=== PATIENT | female | born 1985 ===

== ENCOUNTER 2018-03-08 09:35 | Emergency (ER) | payer MEDICAID ==
[2018-03-08 09:52] VITALS: TEMP 99; O2SAT 100
[2018-03-08] MEDS ORDERED: Tdap Vaccine 0.5 ml Vial (10-64 yrs) IM ONE ×2 (10:34→11:45)
[2018-03-08] MEDS ORDERED: Povidone Iodine Topical 10% Sol ONE (11:44)
[2018-03-08] MEDS ORDERED: Lidocaine 1% 5ml Abboject ONE (11:45)
[2018-03-08] MEDS ORDERED: Lidocaine 1% Inj (20ml) IJ ONE (11:56)
--- NOTE | 2018-03-08 12:21 | RAD ---
Date of service: 03/08/2018 PROCEDURE: Right Foot Radiographs. HISTORY: Laceration COMPARISON: None. FINDINGS: BONES: Bone alignment and mineralization are normal. There is no acute displaced fracture or bone destruction. JOINTS: Normal. SOFT TISSUES: Normal. OTHER FINDINGS: None. IMPRESSION: No acute fracture or dislocation.
--- NOTE | 2018-03-08 12:45 | ED PDOC ---
Lower Extremity Pain/Injury Time Seen by Provider: 03/08/18 10:25 Chief Complaint (Nursing): Lower Extremity Problem/Injury Chief Complaint (Provider): Lower Extremity Problem/Injury History Per: Patient History/Exam Limitations: no limitations Current Symptoms Are (Timing): Still Present Additional Complaint(s): Karen Smims is a 32 year old female with no past medical history, who prese nts to the emergency department after sustaining a right foot injury, onset prior to arrival. Patient states she was wearing sandals when she stepped on glass while walking. She further reports that the glass did not go through her shoe. Her tetanus is unknown. PMD: Moses Morales Past Medical History Reviewed: Historical Data, Nursing Documentation, Vital Signs Vital Signs: Last Vital Signs Temp 99.0 F 03/08/18 09:51 Pulse 108 H 03/08/18 09:51 Resp 19 03/08/18 09:51 BP 130/79 03/08/18 09:51 Pulse Ox 100 03/08/18 09:51 - Medical History PMH: No Chronic Diseases - Surgical History Surgical History: Appendectomy - Family History Family History: States: Unknown Family Hx - Home Medications Home Medications: Ambulatory Orders Medication Instructions Recorded Cephalexin [cephalexin] 500 mg PO QID #27 cap 03/08/18 Naproxen [Naprosyn] 500 mg PO BID PRN #15 tablet 03/08/18 - Allergies Allergies/Adverse Reactions: Allergies Allergy/AdvReac Type Severity Reaction Status Date / Time No Known Allergies Allergy Verified 03/08/18 10:13 Review of Systems ROS Statement: Except As Marked, All Systems Reviewed And Found Negative Musculoskeletal: Positive for: Foot Pain (right foot laceration ) Physical Exam - Reviewed Nursing Documentation Reviewed: Yes Vital Signs Reviewed: Yes - Physical Exam Appears: Positive for: Non-toxic, No Acute Distress Head Exam: Positive for: ATRAUMATIC, NORMOCEPHALIC Skin: Positive for: Normal Color, Warm, Dry Eye Exam: Positive for: Normal appearance, EOMI, PERRL ENT: Positive for: Normal ENT Inspection Neck: Positive for: Normal, Painless ROM, Supple Cardiovascular/Chest: Positive for: Regular Rate, Rhythm. Negative for: Murmur Respiratory: Positive for: Normal Breath Sounds. Negative for: Respiratory Distress Gastrointestinal/Abdominal: Positive for: Normal Exam, Soft. Negative for: Tenderness Back: Positive for: Normal Inspection. Negative for: L CVA Tenderness, R CVA Tenderness, Vertebral Tenderness Extremity: Positive for: Normal ROM, Other (3 cm laceration on right medial mid foot; 5/5 muscle strength; no loss of sensation; no obvious foreign body) Neurologic/Psych: Positive for: Alert, Oriented (x3). Negative for: Motor /Sensory Deficits - ECG O2 Sat by Pulse Oximetry: 100 (RA) Pulse Ox Interpretation: Normal - Progress ED Course And Treament: Provider placed sutures to close patient's laceration. - Physician Consult Information Time Consulting Physican Contacted: 10:30 Physician Contacted: Podiatry Medical Decision Making Medical Decision Making: Time: 10:34 Initial Impression: Foot laceration Initial Plan: --ED urine --Right foot x-ray --Adacel (10-64 yrs) 0.5 ml IM --Keflex 500 mg PO --Lidocaine 1% (20ml) 1 ml IJ Time: 12:18 Right foot x-ray findings: Accession No. : [id number] Patient Name / ID : SOFIA CAR / [id number] Exam Date : 03/08/2018 10:44:27 ( Approved ) Study Comment : Sex / Age : F / 32Y Creator : No Velez MD Dictator : No Velez MD Logistics Solution Manager : Switch House Operator : No Velez MD Approver2 : Report Date : 03/08/2018 12:18:19 My Comment : Date of service: 03/08/2018 PROCEDURE: Right Foot Radiographs. HISTORY: Laceration COMPARISON: None. FINDINGS: BONES: Bone alignment and mineralization are normal. There is no acute displaced fracture or bone destruction. JOINTS: Normal. SOFT TISSUES: Normal. OTHER FINDINGS: None. IMPRESSION: No acute fracture or dislocation. Discharge instruction: Podiatry recommends Keflex for 7 days. Provider instructed patient to follow up with podiatry in x1 week. Scribe Attestation: Documented by Malik Sol, acting as a scribe for Madisyn Hardy MD. Provider Scribe Attestation: All medical record entries made by the Scribe were at my direction and personally dictated by me. I have reviewed the chart and agree that the record accurately reflects my personal performance of the history, physical exam, medical decision making, and the department course for this patient. I have also personally directed, reviewed, and agree with the discharge instructions and disposition. Disposition - Clinical Impression Clinical Impression: Foot laceration - Disposition Referrals: Podiatry Clinic [Outside] Disposition: Routine/Home Disposition Time: 12:44 Condition: STABLE Additional Instructions: FOLLOW-UP WITH PODIATRY CLINIC IN ONE WEEK. Prescriptions: Cephalexin [cephalexin] 500 mg PO QID #27 cap Naproxen [Naprosyn] 500 mg PO BID PRN #15 tablet PRN Reason: Pain, Moderate (4-7) Instructions: Laceration Repair, Laceration Repair With Stitches (DC) Forms: [employer] ([place])
--- NOTE | 2018-03-08 12:52 | CP.PCM.PN ---
Subjective - Date & Time of Evaluation Date of Evaluation: 03/08/18 Time of Evaluation: 12:52 Objective - Vital Signs/Intake and Output Vital Signs (last 24 hours): Temp Pulse Resp BP Pulse Ox 99.0 F 108 H 19 130/79 100 03/08/18 09:51 03/08/18 09:51 03/08/18 09:51 03/08/18 09:51 03/08/18 12:45
[2018-03-08 13:04] VITALS: BP 126/78; PULSE 90; RESP 18
--- NOTE | 2018-03-08 13:04 | CP.PCM.CON ---
History of Present Illness - History of Present Illness History of Present Illness: Podiatry consult note for attending Dr. Quinn. 32 Y/O F patient with no PMH seen and evaluated in the ED for laceration in her right foot. patient accompanied by her mother in the bedside. Patient states that at 7.30 am she stepped over a piece of glass. Patient states that she got wounded in the bottom of her right foot and felt pain immediately in the bottom of her right foot. She describes the pain as sharp pain, 10/10 decreased to 8/10 by when she is off weight bearing. Patient states that she had some bleeding from her right foot wound. Patient states that she dropped her kids to the school and comes immediately to the ED. Patient denies any tingling, numbness or burning sensation in her foot. Patient denies any other pedal complaint at this time. he denies any recent F/N/V/C or SOB. patient states that she didn't receive tetanus vaccine in the last 10 years. PMH: None PSH: Appendectomy. Allergies: NKDA Social Hx: Denies smoking, EtOH use or illicit drug use. Review of Systems - Review of Systems Review of Systems: As per HPI Past Patient History - Past Social History Smoking Status: Never Smoked - CARDIAC Hx Cardiac Disorders: No - PSYCHIATRIC Hx Substance Use: No - SURGICAL HISTORY Hx Appendectomy: Yes - ANESTHESIA Hx Anesthesia: Yes Hx Anesthesia Reactions: No Meds Home Medications: Home Medication List Medication Instructions Recorded Confirmed Type Cephalexin [cephalexin] 500 mg PO QID #27 cap 03/08/18 Rx Naproxen [Naprosyn] 500 mg PO BID PRN #15 tablet 03/08/18 Rx Allergies/Adverse Reactions: Allergies Allergy/AdvReac Type Severity Reaction Status Date / Time No Known Allergies Allergy Verified 03/08/18 10:13 Physical Exam - Constitutional Appears: Well, Non-toxic, No Acute Distress - Head Exam Head Exam: ATRAUMATIC, NORMOCEPHALIC - Extremities Exam Additional comments: B/L LE focused exam: Vasc: DP/PT 2/4 b/l. Cap refill < 3 sec in all digits. Temp gradient warm to cool b/l. No edema. Slight nancy-wound erythema noted. Neuro: Gross and protective sensations are intact. Derm: Laceration noted at the plantar aspect of the right plantar medial arch. edges looks sharp with no foreign material or dirt seen inside the wound. Some bleeding noted. Slight nancy-wound erythema noted. MSK: Pain on palpating the right plantar medial arch. Muscle power intact 5/5 in all groups b/l. - Neurological Exam Neurological exam: Alert, Oriented x3 - Psychiatric Exam Psychiatric exam: Normal Affect, Normal Mood Results - Vital Signs Recent Vital Signs: Last Vital Signs Temp 99.0 F 03/08/18 09:51 Pulse 108 H 03/08/18 09:51 Resp 19 03/08/18 09:51 BP 130/79 03/08/18 09:51 Pulse Ox 100 03/08/18 12:45 Assessment & Plan - Assessment and Plan (Free Text) Assessment: 32 y/o F patient seen and evaluated in the ED for right foot laceration Plan: Patient seen and evaluated in ED. Plan discussed with attending Dr. Quinn. Chart labs and vitals reviewed; Afebrile. Discussed with the patient that she need to stitch the laceration under local anesthesia. Benefits, risks and possible complications of the procedure explained to the patient. Patient expressed verbal understanding. Patient agrees to do the procedure. Patient signed informed consent. 10 cc of 1% lidocaine injected in infiltration fashion to the plantar medial ar ch of the right foot at the nancy-wound area. Wound irrigated with copious amount of sterile saline Under sterile condition, After checking the local anesthesia status plantar medial arch of the right foot stitched using 3-0 prolene sutures in a simple suture fashion. Dressing then applied using bacitracin, DSD, kerlix and yogesh bandage. Patient tolerated the procedure well with no complications. RX Keflex 500 mg tablets PO TID. Patient instructed to change the dressing daily with betadine and DSD. Dispensed right surgical shoe. Patient instructed to ambulate in a surgical shoe and to bear weight on her right heel. Patient insructed to use OTC pain medications (Tylenol or Ibuprofen) in case of pain. Patient expressed verbal understanding. Patient received a dose of tetanus vaccine prescribed by the ED doctor. Patient to F/U in the podiatry clinic. Thank you for consulting podiatry service. - Date & Time Date: 03/08/18 Time: 13:05
== END 2018-03-08 13:00 | disposition home or self-care (01) ==
LOC: H.ER 09:35
DX: S91.311A Laceration without foreign body, right foot, initial encounter (principal); W25.XXXA Contact with sharp glass, initial encounter; Y92.89 Other specified places as the place of occurrence of the external cause

== ENCOUNTER 2018-04-01 03:23 | Emergency (ER) | payer MEDICAID ==
[2018-04-01 03:42] VITALS: BP 116/76; PULSE 86; RESP 18; TEMP 97.8; O2SAT 100
[2018-04-01] MEDS ORDERED: Lidocaine 1% w Epi 1:100,000 Inj INFIL ONE (03:42)
--- NOTE | 2018-04-01 03:45 | ED PDOC ---
HPI: Head Injury Time Seen by Provider: 04/01/18 03:30 Chief Complaint (Nursing): Trauma Chief Complaint (Provider): HEAD INJURY History Per: Patient (32 Y/O FEMALE HERE WITH HEAD INJURY TODAY AT HOME. ADMITS TO ETOH INTAKE. STATES SHE DID NOT HAVE LOC. BLOOD/LACERATION NOTED BY BOYFRIEND AND SHE CAME TO ED FOR EVALUATION. TETANUS UP TO DATE 3 WEEKS AGO) Past Medical History Reviewed: Historical Data, Nursing Documentation, Vital Signs Vital Signs: Last Vital Signs Temp 97.8 F 04/01/18 03:38 Pulse 86 04/01/18 03:38 Resp 18 04/01/18 03:38 BP 116/76 04/01/18 03:38 Pulse Ox 100 04/01/18 03:38 - Surgical History Surgical History: Appendectomy - Family History Family History: States: Unknown Family Hx - Home Medications Home Medications: Ambulatory Orders Medication Instructions Recorded Cephalexin [cephalexin] 500 mg PO QID #27 cap 03/08/18 Naproxen [Naprosyn] 500 mg PO BID PRN #15 tablet 03/08/18 - Allergies Allergies/Adverse Reactions: Allergies Allergy/AdvReac Type Severity Reaction Status Date / Time No Known Allergies Allergy Verified 04/01/18 03:42 Review of Systems ROS Statement: Except As Marked, All Systems Reviewed And Found Negative Physical Exam - Reviewed Nursing Documentation Reviewed: Yes Vital Signs Reviewed: Yes - Physical Exam Appears: Positive for: Well, Non-toxic, No Acute Distress Head Exam: Positive for: NORMAL INSPECTION, NORMOCEPHALIC. Negative for: ATRAUMATIC (5 CM LACERATION LINEAR POSTERIOR SCALP) Skin: Positive for: Normal Color, Warm, DRY Eye Exam: Positive for: EOMI, Normal appearance, PERRL ENT: Positive for: Normal ENT Inspection Neck: Positive for: Normal, Painless ROM Cardiovascular/Chest: Positive for: Regular Rate, Rhythm Respiratory: Positive for: CNT, Normal Breath Sounds Gastrointestinal/Abdominal: Positive for: Normal Exam, Soft Back: Positive for: Normal Inspection Extremity: Positive for: Normal ROM Neurologic/Psych: Positive for: Alert, Oriented - ECG O2 Sat by Pulse Oximetry: 100 - Progress ED Course And Treament: HEAD CT: NAD CT C SPINE: NAD Disposition - Clinical Impression Clinical Impression: Head injury, Laceration of head - Patient ED Disposition Is Patient to be Admitted: No - Disposition Disposition: Routine/Home Disposition Time: 04:56 Condition: FAIR Additional Instructions: RETURN TO ED AND F/U WITH PMD/URGENT CARE IN 10 DAYS FOR REMOVAL OF CHULA. Instructions: Closed Head Injury, Laceration Repair With [place] (DC) Procedure: Wound Repair - Time Performed Time Performed: 04:34 - Time Out Time Out: Site verified - Consent Obtained Consent obtained: Verbal - Performed by Performed by: Mid-level Provider - Indications Indication(s):: Laceration - Location Location:: Scalp Dimensions Length cm: 5.25 cm Depth:: Epidermis - Anesthetic Technique Anesthetic Technique: Regional block Local/Regional Anesthetic:: Lidocaine 1% w/epi - Irrigated Irrigated with ml of normal saline: 150ml sterile water - Complexity Complexity:: Simple (one layer) - Muscle repiar layer closed with Muscle repair layer closed with:: Tetanus up to date (ELEVEN CHULA PLACED INTERRUPTED.) - Patient tolerated procedure Patient Tolerated Procedure:: Well
--- NOTE | 2018-04-01 09:53 | CT ---
Date of service: 04/01/2018 PROCEDURE: CT HEAD WITHOUT CONTRAST. HISTORY: HEAD INJURY COMPARISON: None available. TECHNIQUE: Axial computed tomography images were obtained through the head/brain without intravenous contrast. Radiation dose: Total exam DLP = 825.28 mGy-cm. This CT exam was performed using one or more of the following dose reduction techniques: Automated exposure control, adjustment of the mA and/or kV according to patient size, and/or use of iterative reconstruction technique. FINDINGS: HEMORRHAGE: No intracranial hemorrhage. BRAIN: No mass effect or edema. No atrophy or chronic microvascular ischemic changes. VENTRICLES: Unremarkable. No hydrocephalus. CALVARIUM: Unremarkable. PARANASAL SINUSES: Unremarkable as visualized. No significant inflammatory changes. MASTOID AIR CELLS: Unremarkable as visualized. No inflammatory changes. OTHER FINDINGS: There appears to be left posterior parietal scalp laceration and associated hematoma seen on axial images 32 through 40 series 4. No radiopaque foreign body is noted. IMPRESSION: No evidence of intracranial hemorrhage or recent infarct. This agrees with preliminary report provided by the on-call radiologist.
--- NOTE | 2018-04-01 09:57 | CT ---
Date of service: 04/01/2018 PROCEDURE: CT Cervical Spine without contrast HISTORY: FALL/HEAD INJURY COMPARISON: None available. TECHNIQUE: Axial computed tomography images were obtained of the cervical spine without the use of intravenous contrast. Coronal and sagittal reformatted images were created and reviewed. Radiation dose: Total exam DLP = 250.38 mGy-cm. This CT exam was performed using one or more of the following dose reduction techniques: Automated exposure control, adjustment of the mA and/or kV according to patient size, and/or use of iterative reconstruction technique. FINDINGS: VERTEBRAE: No fracture. Normal alignment. No destructive bony lesion. DISCS/SPINAL CANAL/NEURAL FORAMINA: No significant central canal or neural foraminal stenosis. Discs heights are grossly preserved. No disc herniation is identified. C1-C2 articulation is within normal limits. PARASPINAL SOFT TISSUES: No prevertebral soft tissue swelling is seen. No adenopathy is noted. Visualized thoracic inlet and thyroid gland are within normal limits. Posterior nasopharynx is unremarkable. Visualized mastoid air cells are unremarkable. OTHER FINDINGS: None. IMPRESSION: No evidence of fracture malalignment. This agrees with preliminary report provided by the on-call radiologist.
== END 2018-04-01 05:17 | disposition home or self-care (01) ==
LOC: H.ER 03:23
DX: S09.90XA Unspecified injury of head, initial encounter (principal); S01.01XA Laceration without foreign body of scalp, initial encounter; W19.XXXA Unspecified fall, initial encounter; Y92.89 Other specified places as the place of occurrence of the external cause